=== PATIENT | male | born 1975 | race Caucasian/White ===

== ENCOUNTER 2017-06-27 00:46 | Emergency (ER) | payer OTHER ==
[~2017-06-27] VITALS: Ht 172.7 cm; Wt 72.2 kg
[2017-06-27 00:51] VITALS: Ht 172.7 cm; Wt 72.2 kg
[2017-06-27] MEDS ORDERED: DIAZEPAM 5 MG TAB PO ONE (01:30)
[2017-06-27] MEDS ORDERED: ACETAMINOPHEN 325 MG TAB PO ONE (01:30)
[2017-06-27] MEDS ORDERED: ACET325T33 PO (02:17)
[2017-06-27] MEDS ORDERED: CYCL-319 PO (02:17)
--- NOTE | 2017-06-27 02:38 | RADRPT ---
PROCEDURE: Chest. CLINICAL INDICATION: Chest pain. TECHNIQUE: Single frontal view of the chest was obtained. COMPARISON: None. FINDINGS: The cardiac silhouette is within normal limits. The aortic arch is unremarkable. There is no focal consolidation, vascular congestion or pleural effusion. There is no pneumothorax. IMPRESSION: No evidence for active cardiopulmonary disease. .Ander Caruso MD, MD Date Time Electronically viewed and signed by .Ander Caruso MD, on 06/27/2017 02:38 .T/
[2017-06-27 02:45] VITALS: BP 125/71; PULSE 62; RESP 16; TEMP 98.7
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
== END 2017-06-27 02:45 | disposition home or self-care (01) ==
LOC: FTE 00:46
DX: R07.89 Other chest pain (principal)
CPT/HCPCS: 71010

== ENCOUNTER 2018-03-22 20:13 | Emergency (ER) | END 2018-03-22 22:25 | disposition home or self-care (01) ==